=== PATIENT | male | born 1950 | race Caucasian/White ===

== ENCOUNTER 2021-11-03 19:03 | Inpatient (IN) ==
[2021-11-03] MEDS ORDERED: NS 1,000 ML IV 1,000 ML IV ONE ×2 (19:18→21:47)
[2021-11-03] MEDS ORDERED: NS 1,000 ML IV 1,000 ML ONE ×3 (19:19→22:55)
--- NOTE | 2021-11-03 19:28 | DR.GENAD ---
HPI Time Seen Time Seen by Provider: 11/03/21 19:28 PCP Primary Care Physician: logan HPI Comment HPI Comment: PATIENT IS 71YR OLD MALE IN ER WITH HIS , COMPLAINING OF DIARRHEA SINCE WEDNESDAY. HE IS WEAK, RUNNING FEVER AND IS ANOREXIC. Complaint/Symptoms Chief Complaint Doctors Comments: DIARRHEA SINCE WEDNESDAY. Chief Complaint:: PT STATES" I'VE HAD DIARRHEA SINCE WEDNESDAY AND I'VE ONLY ATE A HALF OF PIECE OF TOAST" COVID-19 Coronavirus risk:travel/contact w/high risk person: No Has patient experienced Coronavirus symptoms: No Nurses notes reviewed Nurses Notes Review: Yes Source History Provided: Patient Mode of Arrival Mode of Arrival: Wheelchair Timing Onset of Chief Complaint: 11/01/21 Duration Duration: Constant How lon Duration: Days Location Location: ABDOMEN. Severity Severity: Moderate Modifying Factors Worsens:: EXERTION. Improves:: REST. PMH PMH Past Medical History: Yes Past Medical History: Anemia, Arthritis, Coronary Artery Disease, CVA, Dyslipidemia, GERD, Hypertension, [place] and PUD Past Surgical History: Yes Surgical History: Angioplasty/Stents, Bowel Resection and Ortho Surgery Family History History of Family Medical Conditions: Yes Family Medical History: Cancer and Hypertension Social History Does patient currently use any type of tobacco product: No Have you used tobacco products in the last 12 months: No Type of Tobacco Use: None Does any household member use tobacco: No Alcohol Use: None Do you use any recreational Drugs:: No Lives With: Spouse Lives Where: Home Travel Risk Coronavirus risk:travel/contact w/high risk person: No Has patient experienced Coronavirus symptoms: No Infectious screening In the last 2 months have you had wt loss of >10#?: NO Have you had fever, night sweats or hemotysis?: No Have you traveled outside the country in the last 6 months?: No Isolation: Standard ROS Review of Systems Constitutional: See HPI, Fever, Weakness, Fatigue and Loss of Appetite Eyes: No Symptoms Reported ENTM: No Symptoms Reported and See HPI; negative Nose Discharge or Nose Congestion Respiratoy: No Symptoms Reported and See HPI; negative Moist Cough, Short of Breath or Wheezing Cardiovascular: No Symptoms Reported and See HPI; negative Chest Pain Gastrointestinal/Abdominal: See HPI, Abdominal Pain and Diarrhea; negative Nausea or Vomiting Genitourinary: No Symptoms Reported and See HPI; negative Dysuria, Frequency or Hematuria Neurological: See HPI and Weakness; negative Headache or Dizziness Musculoskeletal: No Symptoms Reported and See HPI; negative Muscle Pain Integumentary: See HPI and Dryness; negative Rash or Juandice Hematologic/Lymphatic: No Symptoms Reported and See HPI; negative Easy Bruising Endocrine: No Symptoms Reported and See HPI; negative Increased Thirst or Increased Urine Psychiatric: No Symptoms Reported and See HPI All Other Systems: Reviewed and Negative PE Vital Signs Vitals: Temperature 98.6 F Pulse Rate 88 Respiratory Rate 18 Blood Pressure 127/87 O2 Sat by Pulse Oximetry 97 Head Head Exam: Normal Inspection and Atraumatic Eyes Eye exam: Normal Appearance; negative Scleral Icterus or Conjunctival Injection ENT ENT Exam: Normal Exam, Normal Oropharynx, Normal External Ear Exam and TM's Normal Bilaterally External Ear Exam: Normal External Inspection; negative Mastoid Tenderness TM/Canal Exam: Bilateral: Normal Nose Exam: Normal Nose Exam Mouth Exam: Normal Inspection; negative Lip Swelling or Tongue Swelling Throat Exam: Normal Inspection; negative Tonsillar Erythema, Tonsillomegaly or Tonsillar Exudate Neck Neck Exam: Normal Inspection and Trachea Midline; negative Tenderness Chest Chest Inspection: Normal Inspection and Symmetric Chest Wall Rise; negative Tenderness Respiratory Respiratory Exam: Normal Lung Sounds Bilat; negative Accessory Muscle Use, Chest Wall Tenderness or Respiratory Distress Respiratory Exam: Bilateral: Rhonchi Cardiovascular Cardiovascular Exam: Regular Rate, Normal Rhythm and Normal Heart Sounds; negative Systolic Murmur or Diastolic Murmur Abdominal Exam Abdominal Exam: Normal Bowel Sounds, Soft and Tenderness Abdominal Tenderness: Diffuse and Moderate Extremities Extremities Exam: Normal Inspection and Normal Capillary Refill; negative Edema Back Back Exam: negative (R) CVA Tenderness, (L) CVA Tenderness or Paraspinal Tenderness Neurologic Neurological Exam: Alert and Oriented X3; negative Motor Sensory Deficit Psychiatric Psychiatric Exam: Normal Affect and Normal Mood Skin Skin Exam: Dry; negative Rash MDM Differential Diagnosis Differential Diagnosis: DIARRHEA, GASTROENTERITIS, ABDOMINAL PAIN, UTI, DEHYDRATION. COURSE Treatment Treatment: SEE ORDERS DONE WHILE PATIENT WAS IN ER. Consultation Consultation Comments: DISCUSSED PATIENT WITH DR. VAUGHAN. HE WILL ADMIT PATIENT. Education/Counseling Education/Counseling: Patient and Family Educated On: Diagnosis ROR Labs Reviewed Laboratory Results Reviewed?: Yes Result Diagrams: 11/06/21 05:25 11/06/21 05:25 Laboratory: 11/03/21 20:34 Stool Stool Culture - Final Salmonella Species 11/03/21 20:34 Stool - Final WBC 21.1 X10^3/uL (3.6-10.0) H 11/03/21 19: RBC 5.76 X10^6/uL (4.7-6.0) 11/03/21 19: Hgb 14.9 g/dL (13.5-18.0) 11/03/21 19: Hct 44.9 % (42.0-54.0) 11/03/21 19: MCV 78.0 fL (80.0-100.0) L 11/03/21 19: MCH 25.9 pg (27.0-34.0) L 11/03/21: MCHC 33.2 g/dL (33.0-35.0) 11/03/21: RDW 16.0 % (11.6-16.5) 11/03/21: Plt Count 205 X10^3/uL (150.0-450.0) 11/03/21: Plt Count Comment Adequate (ADEQUATE) 11/03/21: MPV 8.2 fL (7.4-11.0) 11/03/21 19: Neut % (Auto) 70.1 % (42.0-75.0) 11/03/21 19: Lymph % (Auto) 18.9 % (21.0-51.0) L 11/03/21 19: [place] % (Auto) 8.7 % (0.0-13.0) 11/03/21 19: Eos % (Auto) 1.7 % (0.9-2.9) 11/03/21: Baso % (Auto) 0.6 % (0.2-1.0) 11/03/21: Neut # (Auto) 14.8 x10^3/uL (2.2-4.8) H 11/03/21 19: Lymph # (Auto) 4.0 X10^3/uL (1.3-2.9) H 11/03/21 19:23 [place] # (Auto) 1.8 x10^3/uL (0.3-0.8) H 11/03/21 19: Eos # (Auto) 0.4 x10^3/uL (0.0-0.2) H 11/03/21 19:23 Baso # (Auto) 0.1 X10^3/uL (0.0-0.1) 11/03/21 19:23 Absolute Nucleated RBC 0.0 /100WBC 11/03/21 19:23 Total Counted 100 11/03/21 19:23 Neutrophils % (Manual) 81 % (39-76) H 11/03/21 19:23 Lymphocytes % (Manual) 13 % (13-43) 11/03/21 19:23 Monocytes % (Manual) 5 % (4-9) 11/03/21 19:23 Eosinophils % (Manual) 1 % (0-6) 11/03/21 19:23 Plt Morphology Comment Normal (NORMAL) 11/03/21 19: RBC Morphology Normal (NORMAL) 11/03/21 19:23 Sodium 137 mmol/L (136-145) 11/03/21 19:23 Corrected Sodium TNP 11/03/21 19: Potassium 3.4 mmol/L (3.5-5.1) L 11/03/21 19: Chloride 102 mmol/L (98-107) 11/03/21 19:23 Carbon Dioxide 25.4 mmol/L (21-32) 11/03/21 19:23 BUN 12 mg/dL (7-18) 11/03/21 19: Creatinine 1.24 mg/dL (0.70-1.30) 11/03/21 19:23 Est GFR (MDRD) Af Amer > 60 (>60) 11/03/21 19:23 Est GFR (MDRD) Non-Af > 60 (>60) 11/03/21 19:23 Glucose 109 mg/dL (65-99) H 11/03/21 19:23 Calcium 9.1 mg/dL (8.5-10.1) 11/03/21 19: Corrected Calcium TNP 11/03/21 19: Total Bilirubin 0.40 mg/dL (0.2-1.0) 11/03/21 19:23 AST 16 Units/L (15-37) 11/03/21 19:23 ALT 17 Units/L (12-78) 11/03/21 19:23 Alkaline Phosphatase 131 Units/L (46-116) H 11/03/21 19:23 Total Protein 7.7 g/dL (6.4-8.2) 11/03/21 19: Albumin 3.4 g/dL (3.4-5.0) 11/03/21 19: Globulin 4.3 g/dL (2.5-4.5) 11/03/21 19:23 Albumin/Globulin Ratio 0.8 Ratio (1.1-2.1) L 11/03/21 19:23 Specimen Type Clean catch urine 11/03/21 21:44 Urine Color Dark yellow (YELLOW) 11/03/21 21:44 Urine Appearance Clear (CLEAR) 11/03/21 21:44 Urine pH 5.0 (5.0 - 8.0) 11/03/21 21:44 Ur Specific [place] 1.025 (1.000-1.030) 11/03/21 21:44 Urine Protein 2+ (NEGATIVE) 11/03/21 21:44 Urine Glucose (UA) Negative (NEGATIVE) 11/03/21 21:44 Urine Ketones 1+ (NEGATIVE) 11/03/21 21:44 Urine Blood 2+ (NEGATIVE) 11/03/21 21:44 Urine Nitrite Negative (NEGATIVE) 11/03/21 21:44 Urine Bilirubin 1+ (NEGATIVE) 11/03/21 21:44 Urine Urobilinogen Normal (NORMAL) 11/03/21 21:44 Ur Leukocyte Esterase 1+ (NEGATIVE) 11/03/21 21:44 Urine RBC 5-10 /HPF (0-3) A 11/03/21 21:44 Urine WBC 3-5 /HPF (0-5) 11/03/21 21:44 Ur Squamous Epith Cells Rare /HPF (NEGATIVE) 11/03/21 21:44 Urine Bacteria Trace /HPF (NEGATIVE) 11/03/21 21:44 Urine Mucus Moderate /HPF (NEGATIVE) 11/03/21 21:44 Ur Culture Indicated? No/not indicated 11/03/21 21:44 Stool Description 50 g. dk.brwn/liquid 11/03/21 20:34 Stool Description 50 g.dk.brwn/liquid 11/03/21 20:34 Stl Occult Blood (IFOB) Positive (NEGATIVE) A 11/03/21 20:34 Stool for White Cells Positive (NEGATIVE) A 11/03/21 20:34 Stl C. diff Tox B Gene Negative (NEGATIVE) 11/03/21 20:34 Stl C. diff [id number] Presumptive negative (NEGATIVE) 11/03/21 20:34 Stool H. pylori Ag Positive (NEGATIVE) A 11/03/21 20:34 SARS-CoV-2 (PCR) Negative (NEGATIVE) 11/03/21 19:44 Cryptosporid parvum Ag Positive (NEGATIVE) A 11/03/21 20:34 Giardia lamblia Ag Negative (NEGATIVE) 11/03/21 20:34 Influenza Type A (PCR) Negative (NEGATIVE) 11/03/21 19:44 Influenza Type B (PCR) Negative (NEGATIVE) 11/03/21 19:44 RSV (PCR) Negative (NEGATIVE) 11/03/21 19:44 XRAY XRAY Interpreted by: Radiologist (REPORTS NOTED.) and Self Opioid Opioid Risk Tool Age (Ron box if 16-45): No History of Preadolescent Sexual Abuse: No Total: 0 Total Score Risk Category: Low Risk Copyright: Richard RICCI predicting aberrant behaviors Discharge Plan Diagnosis Discharge Problem: Infectious diarrhea in adult patient, Acute colitis, Acute dehydration, Abdominal pain Discharge Plan Patient Disposition: 01 HOME, SELF-CARE Condition: Stable
[2021-11-03 19:33] LABS: BASOPHILS # (AUTO) 0.1 X10^3/uL (0.0-0.1); BASOPHILS % (AUTO) 0.6 % (0.2-1.0); EOSINOPHILS # (AUTO) 0.4 x10^3/uL (0.0-0.2); EOSINOPHILS % (AUTO) 1.7 % (0.9-2.9); HEMATOCRIT 44.9 % (42.0-54.0); HEMOGLOBIN 14.9 g/dL (13.5-18.0); LYMPHOCYTES % (AUTO) 18.9 % (21.0-51.0); MEAN CORPUSCULAR HEMOGLOBIN 25.9 pg (27.0-34.0); MEAN CORPUSCULAR HGB CONC 33.2 g/dL (33.0-35.0); MEAN PLATELET VOLUME 8.2 fL (7.4-11.0); MONOCYTES # (AUTO) 1.8 x10^3/uL (0.3-0.8); MONOCYTES % (AUTO) 8.7 % (0.0-13.0); NEUTROPHILS # (AUTO) 14.8 x10^3/uL (2.2-4.8); NEUTROPHILS % (AUTO) 70.1 % (42.0-75.0); RED BLOOD COUNT 5.76 X10^6/uL (4.7-6.0); WHITE BLOOD COUNT 21.1 X10^3/uL (3.6-10.0)
[2021-11-03 19:44] LABS: ALANINE AMINOTRANSFERASE 17 Units/L (12-78); ALBUMIN 3.4 g/dL (3.4-5.0); ALKALINE PHOSPHATASE 131 Units/L (46-116); ASPARTATE AMINO TRANSFERASE 16 Units/L (15-37); BLOOD UREA NITROGEN 12 mg/dL (7-18); CALCIUM 9.1 mg/dL (8.5-10.1); CARBON DIOXIDE 25.4 mmol/L (21-32); CHLORIDE 102 mmol/L (98-107); CREATININE 1.24 mg/dL (0.70-1.30); SODIUM 137 mmol/L (136-145); TOTAL PROTEIN 7.7 g/dL (6.4-8.2); eGFR NON BLACK RACES > 60 (>60)
[2021-11-03 19:46] LABS: PLATELET MORPHOLOGY COMMENT NORMAL (NORMAL)
--- NOTE | 2021-11-03 21:27 | RAD ---
HISTORYPT STATES" I'VE HAD DIARRHEA SINCE WEDNESDAY AND I'VE ONLY ATE A HALF OF PIECE OF TOAST" Relevant Clinical InformationSTUDYCHEST, 1 VIEWCOMPARISONFINDINGSThe trachea is midline. The aorta is tortuous with atherosclerosis. The cardiac silhouette is unremarkable. The lungs are clear without focal infiltrate or effusion. The bony thorax is unremarkable.IMPRESSIONNo acute cardiopulmonary findings .Electronically signed by: Taurus Watts (Nov 03, 2021 21:25:39)
--- NOTE | 2021-11-03 21:38 | CT ---
HISTORYPT STATES" I'VE HAD DIARRHEA SINCE WEDNESDAY AND I'VE ONLY ATE A HALF OF PIECE OF TOAST"STUDYABDOMEN/PELVIS W/O CONCOMPARISONTECHNIQUEMultiple axial images of the abdomen and pelvis were obtained from the lung bases to the pubic symphysis without the administration of IV contrast. Dose reduction techniques including Automated Exposure Control (AEC) and adjustment of mA and kV were utilized.FINDINGSThere is bronchial wall thickening. The lung bases are clear without effusion. There is a trace pericardial effusion. Heart size is normal with multi-vessel coronary atherosclerosis. The liver is normal. The gallbladder has been removed. Pancreas is mildly atrophic. The spleen, adrenal glands, and kidneys are normal. There is fairly severe systemic atherosclerosis. 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 The stomach is grossly unremarkable. Is in the small bowel but there is no abnormal dilation of the small bowel loops. There is no evidence for appendicitis. There is nonspecific wall thickening in the cecum and right colon and in the area of the distal transverse colon and in the sigmoid colon. There is some nonspecific induration in the mesenteric fat of the sigmoid. No mass is identified. The bladder is normal. Prostate measures 4.3 centimeter in diameter. There is degeneration in the spine pelvis. There is no worrisome bone marrow lesion.IMPRESSION1. There is nonspecific multifocal wall thickening in the colon including in the cecum and right colon and in the distal transverse colon and in the descending and sigmoid colon. The appearance is suggestive of some form of colitis area 2. Severe systemic atherosclerosis. Ischemic bowel might be a consideration.Electronically signed by: Taurus Watts (Nov 03, 2021 21:36:12)
[2021-11-03 21:59] LABS: BILIRUBIN,URINE 1+ (NEGATIVE); BLOOD/HEMOGLOBIN,URINE 2+ (NEGATIVE); GLUCOSE, URINE NEGATIVE (NEGATIVE); KETONES,URINE 1+ (NEGATIVE); LEUKOCYTE ESTERASE ,URINE 1+ (NEGATIVE); NITRITES,URINE NEGATIVE (NEGATIVE); PROTEIN,URINE 2+ (NEGATIVE); UROBILINOGEN,URINE NORMAL (NORMAL)
[2021-11-03] MEDS ORDERED: NS 1,000 ML IV 1,000 ML IV SCH (22:00)
[2021-11-03 22:08] LABS: APPEARANCE,URINE CLEAR (CLEAR); BACTERIA,URINE TRACE /HPF (NEGATIVE); COLOR,URINE DARK YELLOW (YELLOW); SQUAMOUS EPITHELIAL CELL,UR RARE /HPF (NEGATIVE)
[2021-11-03 22:29] LABS: CRYPTOSPORIDIUM PARVUM ANTIGEN POSITIVE (NEGATIVE); GIARDIA LAMBLIA ANTIGEN NEGATIVE (NEGATIVE)
[2021-11-03] MEDS: NS 1,000 ML IV 1,000 ML IV SCH (23:01)
[2021-11-03] MEDS ORDERED: K-DUR TAB 20 MEQ PO ONE ×2 (23:17→23:19)
[2021-11-03] MEDS ORDERED: LOMOTIL ONE (23:19)
[2021-11-03] MEDS: LOMOTIL PO ONE ×2 (23:23→23:24)
[2021-11-03] MEDS ORDERED: FLAGYL IV PREMIX 500 MG BAG 500 MG/100 ML BAG IV ONE ×2 (23:29→23:37)
[2021-11-04] MEDS ORDERED: MORPHINE SULFATE INJ 2 MG INJ IVP PRN (00:52)
[2021-11-04] MEDS ORDERED: ZOFRAN INJ 4 MG VIAL IVP PRN (00:52)
[2021-11-04] MEDS: PEPCID 20 MG VIAL 20 MG in NS 50 ML IV 50 ML IV SCH ×2 (02:23→20:41)
[2021-11-04] MEDS: CIPRO IV 400 MG PREMIX* 400 MG/200 ML IV.SOLN. IV SCH ×3 (02:23→21:34)
[2021-11-04 05:37] LABS: BASOPHILS % (AUTO) 0.1 % (0.2-1.0); EOSINOPHILS # (AUTO) 0.1 x10^3/uL (0.0-0.2); EOSINOPHILS % (AUTO) 0.8 % (0.9-2.9); HEMATOCRIT 37.9 % (42.0-54.0); LYMPHOCYTES # (AUTO) 3.1 X10^3/uL (1.3-2.9); LYMPHOCYTES % (AUTO) 21.4 % (21.0-51.0); MEAN CORPUSCULAR HGB CONC 33.6 g/dL (33.0-35.0); MEAN CORPUSCULAR VOLUME 77.5 fL (80.0-100.0); MEAN PLATELET VOLUME 8.2 fL (7.4-11.0); MONOCYTES # (AUTO) 1.4 x10^3/uL (0.3-0.8); NEUTROPHILS # (AUTO) 9.7 x10^3/uL (2.2-4.8); NEUTROPHILS % (AUTO) 67.7 % (42.0-75.0); RED BLOOD COUNT 4.89 X10^6/uL (4.7-6.0); RED CELL DISTRIBUTION WIDTH 15.9 % (11.6-16.5); WHITE BLOOD COUNT 14.3 X10^3/uL (3.6-10.0)
[2021-11-04 05:43] LABS: HEMOGLOBIN 12.7 g/dL (13.5-18.0)
[2021-11-04 05:47] LABS: ALANINE AMINOTRANSFERASE 14 Units/L (12-78); ALBUMIN 2.7 g/dL (3.4-5.0); ALKALINE PHOSPHATASE 106 Units/L (46-116); AMYLASE 17 Units/L (25-115); ASPARTATE AMINO TRANSFERASE 13 Units/L (15-37); BLOOD UREA NITROGEN 10 mg/dL (7-18); CALCIUM 8.1 mg/dL (8.5-10.1); CARBON DIOXIDE 23.2 mmol/L (21-32); CHLORIDE 106 mmol/L (98-107); COR CA(FOR HYPOALB) 9.1 mg/dL (8.5-10.1); CREATININE 0.88 mg/dL (0.70-1.30); LIPASE 46 Units/L (73-393); SODIUM 138 mmol/L (136-145); TOTAL PROTEIN 6.2 g/dL (6.4-8.2); eGFR NON BLACK RACES > 60 (>60)
[2021-11-04] MEDS ORDERED: POTASSIUM CHL 40 MEQ/NS 0.45% 500 ML IV PRN (06:02)
[2021-11-04] MEDS ORDERED: POTASSIUM CHL 60 MEQ/NS 0.45% 500 ML IV PRN ×2 (06:02→06:19)
[2021-11-04] MEDS ORDERED: KLOR-CON PO PRN (06:02)
[2021-11-04] MEDS ORDERED: MICRO K EXTEN CAP 10 MEQ PO PRN (06:02)
[2021-11-04] MEDS ORDERED: K-RIDER 10 MEQ/NS 100 ML 10 MEQ/100 ML BAG IV PRN (06:02)
[2021-11-04] MEDS ORDERED: POTASSIUM CHLORIDE LIQ 20 MEQ UDC PO PRN (06:02)
[2021-11-04] MEDS ORDERED: K-DUR TAB 20 MEQ PO ONE (06:10)
[2021-11-04] MEDS: NS 1,000 ML IV 1,000 ML IV SCH ×4 (07:37→21:00)
--- NOTE | 2021-11-04 08:12 | DR.H&P ---
H&P History & Physical for Day of: H&P Date: 11/04/21 Chief Complaint Chief Complaint: Fever, chills, Diarrhea, Decreased appetite Generalized weakness Allergies Allergies Allergy/AdvReac Type Severity Reaction Status Date / Time No Known Drug Allergies Allergy Verified 10/04/20 13:24 History of Present Illness History of Present Illness: Pt is a 71 year old male past medical history of Hypertension, CAD, Hyperlipidemia, presenting with fever, chills, weakness, diarrhea, lower abdominal pain, and decreased appetite since Wednesday. He does not recall any foods that he ate that day or prior to symptoms. No one else that he knows is sick as well. Labs/imaging: Wbc 21>14.3, Hgb 12.7, Plt 163, Na 138, K 3.1, Creatinine 0.88, Glucose 97, LA 1.7, UA negative, H. pylori positive, C. Diff negative, Cryptosporidium positive, Campylobacter positive, Stool culture final pending. Blood cultures pending, RSV/ Influenza/ COVID-19 negative, CTAP was obtained that revealed: 1.There is nonspecific multifocal wall thickening in the colon including in the cecum and right colon and in the distal transverse colon and in the descending and sigmoid colon. The appearance is suggestive of some form of colitis area 2. Severe systemic atherosclerosis. Ischemic bowel might be a consideration. CXR: No acute cardiopulmonary findings. Pt was admitted for colitis. He was started on IVF NS and IV antibiotics: Ciprofloxacin and Flagyl. Will restart home medications. Consult general surgery-Dr Palacios for further evaluation and recommendations. Continue to closely monitor and follow up labs/imaging. Past Medical History Past Medical History: Anemia, Arthritis, Coronary Artery Disease, CVA, Dyslipidemia, GERD, Hypertension, [place] and PUD Past Surgical History Surgical History: Angioplasty/Stents, Bowel Resection and Ortho Surgery Family History Family Medical History: Cancer and Hypertension Social History Does patient currently use any type of tobacco product: No Have you used tobacco products in the last 12 months: No Type of Tobacco Use: None Does any household member use tobacco: No Alcohol Use: None Medications Home Medications: No Known Drug Allergies Allergy (Verified 10/04/20 13:24) Labs Result Diagrams: 11/05/21 05:24 11/05/21 05:24 Labs: 11/03/21 20:34 Stool - Final Laboratory WBC 14.3 X10^3/uL (3.6-10.0) H 11/04/21 05:16 RBC 4.89 X10^6/uL (4.7-6.0) 11/04/21 05:16 Hgb 12.7 g/dL (13.5-18.0) L D 11/04/21 05:16 Hct 37.9 % (42.0-54.0) L 11/04/21 05:16 MCV 77.5 fL (80.0-100.0) L 11/04/21 05:16 MCH 26.0 pg (27.0-34.0) L 11/04/21 05:16 MCHC 33.6 g/dL (33.0-35.0) 11/04/21 05:16 RDW 15.9 % (11.6-16.5) 11/04/21 05:16 Plt Count 163 X10^3/uL (150.0-450.0) 11/04/21 05:16 Plt Count Comment Adequate (ADEQUATE) 11/03/21 19:23 MPV 8.2 fL (7.4-11.0) 11/04/21 05:16 Neut % (Auto) 67.7 % (42.0-75.0) 11/04/21 05:16 Lymph % (Auto) 21.4 % (21.0-51.0) 11/04/21 05:16 Div[place] % (Auto) 10.0 % (0.0-13.0) 11/04/21 05:16 Eos % (Auto) 0.8 % (0.9-2.9) L 11/04/21 05:16 Baso % (Auto) 0.1 % (0.2-1.0) L 11/04/21 05:16 Neut # (Auto) 9.7 x10^3/uL (2.2-4.8) H 11/04/21 05:16 Lymph # (Auto) 3.1 X10^3/uL (1.3-2.9) H 11/04/21 05:16 [place] # (Auto) 1.4 x10^3/uL (0.3-0.8) H 11/04/21 05:16 Eos # (Auto) 0.1 x10^3/uL (0.0-0.2) 11/04/21 05:16 Baso # (Auto) 0.0 X10^3/uL (0.0-0.1) 11/04/21 05:16 Absolute Nucleated RBC 0.1 /100WBC 11/04/21 05:16 Total Counted 100 11/03/21 19:23 Neutrophils % (Manual) 81 % (39-76) H 11/03/21 19:23 Lymphocytes % (Manual) 13 % (13-43) 11/03/21 19:23 Monocytes % (Manual) 5 % (4-9) 11/03/21 19:23 Eosinophils % (Manual) 1 % (0-6) 11/03/21 19:23 Plt Morphology Comment Normal (NORMAL) 11/03/21 19:23 RBC Morphology Normal (NORMAL) 11/03/21 19:23 Sodium 138 mmol/L (136-145) 11/04/21 05:16 Corrected Sodium TNP 11/04/21 05:16 Potassium 3.1 mmol/L (3.5-5.1) L 11/04/21 05:16 Chloride 106 mmol/L (98-107) 11/04/21 05:16 Carbon Dioxide 23.2 mmol/L (21-32) 11/04/21 05:16 BUN 10 mg/dL (7-18) 11/04/21 05:16 Creatinine 0.88 mg/dL (0.70-1.30) 11/04/21 05:16 Est GFR (MDRD) Af Amer > 60 (>60) 11/04/21 05:16 Est GFR (MDRD) Non-Af > 60 (>60) 11/04/21 05:16 Glucose 97 mg/dL (65-99) 11/04/21 05:16 Calcium 8.1 mg/dL (8.5-10.1) L 11/04/21 05:16 Corrected Calcium 9.1 mg/dL (8.5-10.1) 11/04/21 05:16 Magnesium 1.6 mg/dL (1.7-2.9) L 11/04/21 05:16 Magnesium Cancelled 11/04/21 05:16 Total Bilirubin 0.30 mg/dL (0.2-1.0) 11/04/21 05:16 AST 13 Units/L (15-37) L 11/04/21 05:16 ALT 14 Units/L (12-78) 11/04/21 05:16 Alkaline Phosphatase 106 Units/L (46-116) 11/04/21 05:16 Total Protein 6.2 g/dL (6.4-8.2) L 11/04/21 05:16 Albumin 2.7 g/dL (3.4-5.0) L 11/04/21 05:16 Globulin 3.5 g/dL (2.5-4.5) 11/04/21 05:16 Albumin/Globulin Ratio 0.8 Ratio (1.1-2.1) L 11/04/21 05:16 Amylase 17 Units/L (25-115) L 11/04/21 05:16 Lipase 46 Units/L (73-393) L 11/04/21 05:16 Specimen Type Clean catch urine 11/03/21 21:44 Urine Color Dark yellow (YELLOW) 11/03/21 21:44 Urine Appearance Clear (CLEAR) 11/03/21 21:44 Urine pH 5.0 (5.0 - 8.0) 11/03/21 21:44 Ur Specific [place] 1.025 (1.000-1.030) 11/03/21 21:44 Urine Protein 2+ (NEGATIVE) 11/03/21 21:44 Urine Glucose (UA) Negative (NEGATIVE) 11/03/21 21:44 Urine Ketones 1+ (NEGATIVE) 11/03/21 21:44 Urine Blood 2+ (NEGATIVE) 11/03/21 21:44 Urine Nitrite Negative (NEGATIVE) 11/03/21 21:44 Urine Bilirubin 1+ (NEGATIVE) 11/03/21 21:44 Urine Urobilinogen Normal (NORMAL) 11/03/21 21:44 Ur Leukocyte Esterase 1+ (NEGATIVE) 11/03/21 21:44 Urine RBC 5-10 /HPF (0-3) A 11/03/21 21:44 Urine WBC 3-5 /HPF (0-5) 11/03/21 21:44 Ur Squamous Epith Cells Rare /HPF (NEGATIVE) 11/03/21 21:44 Urine Bacteria Trace /HPF (NEGATIVE) 11/03/21 21:44 Urine Mucus Moderate /HPF (NEGATIVE) 11/03/21 21:44 Ur Culture Indicated? No/not indicated 11/03/21 21:44 Stool Description 50 g. dk.brwn/liquid 11/03/21 20:34 Stool Description 50 g.dk.brwn/liquid 11/03/21 20:34 Stl Occult Blood (IFOB) Positive (NEGATIVE) A 11/03/21 20:34 Stool for White Cells Positive (NEGATIVE) A 11/03/21 20:34 Stl C. diff Tox B Gene Negative (NEGATIVE) 11/03/21 20:34 Stl C. diff [id number] Presumptive negative (NEGATIVE) 11/03/21 20:34 Stool H. pylori Ag Positive (NEGATIVE) A 11/03/21 20:34 SARS-CoV-2 (PCR) Negative (NEGATIVE) 11/03/21 19:44 Cryptosporid parvum Ag Positive (NEGATIVE) A 11/03/21 20:34 Giardia lamblia Ag Negative (NEGATIVE) 11/03/21 20:34 Influenza Type A (PCR) Negative (NEGATIVE) 11/03/21 19:44 Influenza Type B (PCR) Negative (NEGATIVE) 11/03/21 19:44 RSV (PCR) Negative (NEGATIVE) 11/03/21 19:44 Review of Systems Constitutional: Fever, Chills and Weakness Eyes: No Symptoms Reported ENT: No Symptoms Reported Respiratory: No Symptoms Reported Cardiovascular: No Symptoms Reported Gastrointestinal: Abdominal Pain and Diarrhea Genitourinary: No Symptoms Reported Musculoskeletal: No Symptoms Reported Skin: No Symptoms Reported Neurological: No Symptoms Reported Physical Exam Vital Signs: Temperature 98.6 F Pulse Rate [Left Radial] 80 Pulse Rate 88 Respiratory Rate 18 Blood Pressure [Left Arm] 123/77 Blood Pressure 127/87 O2 Sat by Pulse Oximetry 97 Oriented: Normal Eyes: Normal Ear: Normal Nose: Normal Throat: Normal Respiratory: Clear Throughout Cardiovascular: Normal : Normal Auscultation: Bowel Sounds: Normal Palpation: Normal Tenderness: RLQ, LLQ, Mild and Moderate Skin: Normal Musculoskeletal: Normal Psychiatric: Normal Mood Description: Calm and Appropriate Affect: Normal Speech Pattern: Clear and Appropriate Assessment/Plan (1) Acute colitis: Status: Acute Plan: IV antibiotics (2) Infectious diarrhea in adult patient: Status: Acute (3) Acute dehydration: Status: Acute (4) Campylobacter diarrhea: Status: Acute (5) Helicobacter pylori ab+: Status: Acute Review H&P Reviewed: Yes Patient was examined?: Yes
[2021-11-04] MEDS: FLAGYL IV PREMIX 500 MG BAG 500 MG/100 ML BAG IV SCH ×3 (08:28→21:34)
[2021-11-04] MEDS: MAGNESIUM SULFATE 1 GRAM/100 mL PREMIX 1 G/100 ML BAG IV PRN ×2 (09:29→10:29)
[2021-11-04 10:13] VITALS: BMI 25.4
[2021-11-04] MEDS: K-DUR TAB 20 MEQ PO PRN (10:29)
[2021-11-05] MEDS: NS 1,000 ML IV 1,000 ML IV SCH ×4 (01:48→22:30)
[2021-11-05] MEDS: FLAGYL IV PREMIX 500 MG BAG 500 MG/100 ML BAG IV SCH ×4 (03:16→21:54)
[2021-11-05 06:02] LABS: BASOPHILS % (AUTO) 0.3 % (0.2-1.0); EOSINOPHILS # (AUTO) 0.3 x10^3/uL (0.0-0.2); HEMATOCRIT 37.6 % (42.0-54.0); HEMOGLOBIN 12.3 g/dL (13.5-18.0); LYMPHOCYTES # (AUTO) 3.1 X10^3/uL (1.3-2.9); LYMPHOCYTES % (AUTO) 36.5 % (21.0-51.0); MEAN CORPUSCULAR HEMOGLOBIN 25.6 pg (27.0-34.0); MEAN CORPUSCULAR HGB CONC 32.7 g/dL (33.0-35.0); MEAN CORPUSCULAR VOLUME 78.2 fL (80.0-100.0); MEAN PLATELET VOLUME 8.3 fL (7.4-11.0); MONOCYTES % (AUTO) 11.8 % (0.0-13.0); NEUTROPHILS # (AUTO) 4.1 x10^3/uL (2.2-4.8); NEUTROPHILS % (AUTO) 48.4 % (42.0-75.0); RED CELL DISTRIBUTION WIDTH 16.1 % (11.6-16.5); WHITE BLOOD COUNT 8.6 X10^3/uL (3.6-10.0)
[2021-11-05 06:17] LABS: ALANINE AMINOTRANSFERASE 13 Units/L (12-78); ALBUMIN 2.8 g/dL (3.4-5.0); ALKALINE PHOSPHATASE 101 Units/L (46-116); ASPARTATE AMINO TRANSFERASE 22 Units/L (15-37); BLOOD UREA NITROGEN 6 mg/dL (7-18); CALCIUM 8.6 mg/dL (8.5-10.1); CARBON DIOXIDE 22.9 mmol/L (21-32); CHLORIDE 109 mmol/L (98-107); COR CA(FOR HYPOALB) 9.6 mg/dL (8.5-10.1); MAGNESIUM 2.2 mg/dL (1.7-2.9); SODIUM 143 mmol/L (136-145); TOTAL PROTEIN 6.4 g/dL (6.4-8.2); eGFR NON BLACK RACES > 60 (>60)
[2021-11-05] MEDS ORDERED: CATAPRES TAB 0.1 MG PO ONE (08:09)
[2021-11-05] MEDS: CIPRO IV 400 MG PREMIX* 400 MG/200 ML IV.SOLN. IV SCH ×2 (08:13→21:54)
[2021-11-05] MEDS: VSL#3 PO SCH (08:21)
[2021-11-05] MEDS: CRESTOR TAB 10 MG PO SCH (08:21)
[2021-11-05] MEDS: ISOSORBIDE MONONITRATE ER 24-HR PO SCH (08:22)
[2021-11-05] MEDS: COREG TAB 6.25 MG PO SCH ×2 (08:22→21:07)
[2021-11-05] MEDS: PLAVIX PO SCH (08:23)
[2021-11-05] MEDS: PROTONIX TAB 40 MG PO SCH ×2 (08:24→21:07)
--- NOTE | 2021-11-05 16:25 | DR.PROGNOT ---
Hospital Progress Notes - Progress Note for Day of: Progress Note Date: 11/05/21 - Chief Complaint Chief Complaint: feeling better today with less diarrhea and minimal abdominal pain . WBC is normal today . lactic acid N . LFT normal . afebrile and tolerating diet . - Past Medical Family Social History Past Med/Fam/Surg Hx: No changes since H&P Allergies: Allergies No Known Drug Allergies Allergy (Verified 10/04/20 13:24) - Review Of Systems ROS: No change since H&P - Vital Signs Vital Signs: Temperature 98.0 F Pulse Rate [Left Radial] 59 Pulse Rate 88 Respiratory Rate 18 Blood Pressure [Left Arm] 112/60 Blood Pressure 127/87 O2 Sat by Pulse Oximetry 96 - Physical Exam Oriented: Normal Eyes: Normal Ear: Normal Nose: Normal Throat: Normal Cardiovascular: Normal : Normal GI:Auscultation: Normal GI:Palpation: Normal GI: Tenderness: RLQ, LLQ, Mild, Other (soft, flat abdomen with mild diffuse tenderness lower and LLQ . ) Skin: Normal Musculoskeletal: Normal Psychiatric: Normal Mood Description: Calm, Appropriate Affect: Normal Speech Pattern: Clear, Appropriate - Laboratory and Diagnostics Result Diagrams: 11/05/21 05:24 11/05/21 05:24 Labs: 11/03/21 20:34 Stool Stool Culture - Preliminary 11/03/21 20:34 Stool - Final Laboratory WBC 8.6 X10^3/uL (3.6-10.0) 11/05/21 05:24 RBC 4.80 X10^6/uL (4.7-6.0) 11/05/21 05:24 Hgb 12.3 g/dL (13.5-18.0) L 11/05/21 05:24 Hct 37.6 % (42.0-54.0) L 11/05/21 05:24 MCV 78.2 fL (80.0-100.0) L 11/05/21 05:24 MCH 25.6 pg (27.0-34.0) L 11/05/21 05:24 MCHC 32.7 g/dL (33.0-35.0) L 11/05/21 05:24 RDW 16.1 % (11.6-16.5) 11/05/21 05:24 Plt Count 159 X10^3/uL (150.0-450.0) 11/05/21 05:24 Plt Count Comment Adequate (ADEQUATE) 11/03/21 19:23 MPV 8.3 fL (7.4-11.0) 11/05/21 05:24 Neut % (Auto) 48.4 % (42.0-75.0) 11/05/21 05:24 Lymph % (Auto) 36.5 % (21.0-51.0) 11/05/21 05:24 [place] % (Auto) 11.8 % (0.0-13.0) 11/05/21 05:24 Eos % (Auto) 3.0 % (0.9-2.9) H 11/05/21 05:24 Baso % (Auto) 0.3 % (0.2-1.0) 11/05/21 05:24 Neut # (Auto) 4.1 x10^3/uL (2.2-4.8) 11/05/21 05:24 Lymph # (Auto) 3.1 X10^3/uL (1.3-2.9) H 11/05/21 05:24 [place] # (Auto) 1.0 x10^3/uL (0.3-0.8) H 11/05/21 05:24 Eos # (Auto) 0.3 x10^3/uL (0.0-0.2) H 11/05/21 05:24 Baso # (Auto) 0.0 X10^3/uL (0.0-0.1) 11/05/21 05:24 Absolute Nucleated RBC 0.1 /100WBC 11/05/21 05:24 Total Counted 100 11/03/21 19:23 Neutrophils % (Manual) 81 % (39-76) H 11/03/21 19:23 Lymphocytes % (Manual) 13 % (13-43) 11/03/21 19:23 Monocytes % (Manual) 5 % (4-9) 11/03/21 19:23 Eosinophils % (Manual) 1 % (0-6) 11/03/21 19:23 Plt Morphology Comment Normal (NORMAL) 11/03/21 19:23 RBC Morphology Normal (NORMAL) 11/03/21 19:23 Sodium 143 mmol/L (136-145) 11/05/21 05:24 Corrected Sodium TNP 11/05/21 05:24 Potassium 3.9 mmol/L (3.5-5.1) 11/05/21 05:24 Chloride 109 mmol/L (98-107) H 11/05/21 05:24 Carbon Dioxide 22.9 mmol/L (21-32) 11/05/21 05:24 BUN 6 mg/dL (7-18) L 11/05/21 05:24 Creatinine 0.80 mg/dL (0.70-1.30) 11/05/21 05:24 Est GFR (MDRD) Af Amer > 60 (>60) 11/05/21 05:24 Est GFR (MDRD) Non-Af > 60 (>60) 11/05/21 05:24 Glucose 103 mg/dL (65-99) H 11/05/21 05:24 Lactic Acid 1.7 mmol/L (0.4-2.0) 11/04/21 08:15 Calcium 8.6 mg/dL (8.5-10.1) 11/05/21 05:24 Corrected Calcium 9.6 mg/dL (8.5-10.1) 11/05/21 05:24 Magnesium 2.2 mg/dL (1.7-2.9) 11/05/21 05:24 Total Bilirubin 0.30 mg/dL (0.2-1.0) 11/05/21 05:24 AST 22 Units/L (15-37) 11/05/21 05:24 ALT 13 Units/L (12-78) 11/05/21 05:24 Alkaline Phosphatase 101 Units/L (46-116) 11/05/21 05:24 Total Protein 6.4 g/dL (6.4-8.2) 11/05/21 05:24 Albumin 2.8 g/dL (3.4-5.0) L 11/05/21 05:24 Globulin 3.6 g/dL (2.5-4.5) 11/05/21 05:24 Albumin/Globulin Ratio 0.8 Ratio (1.1-2.1) L 11/05/21 05:24 Amylase 17 Units/L (25-115) L 11/04/21 05:16 Lipase 46 Units/L (73-393) L 11/04/21 05:16 Specimen Type Clean catch urine 11/03/21 21:44 Urine Color Dark yellow (YELLOW) 11/03/21 21:44 Urine Appearance Clear (CLEAR) 11/03/21 21:44 Urine pH 5.0 (5.0 - 8.0) 11/03/21 21:44 Ur Specific [place] 1.025 (1.000-1.030) 11/03/21 21:44 Urine Protein 2+ (NEGATIVE) 11/03/21 21:44 Urine Glucose (UA) Negative (NEGATIVE) 11/03/21 21:44 Urine Ketones 1+ (NEGATIVE) 11/03/21 21:44 Urine Blood 2+ (NEGATIVE) 11/03/21 21:44 Urine Nitrite Negative (NEGATIVE) 11/03/21 21:44 Urine Bilirubin 1+ (NEGATIVE) 11/03/21 21:44 Urine Urobilinogen Normal (NORMAL) 11/03/21 21:44 Ur Leukocyte Esterase 1+ (NEGATIVE) 11/03/21 21:44 Urine RBC 5-10 /HPF (0-3) A 11/03/21 21:44 Urine WBC 3-5 /HPF (0-5) 11/03/21 21:44 Ur Squamous Epith Cells Rare /HPF (NEGATIVE) 11/03/21 21:44 Urine Bacteria Trace /HPF (NEGATIVE) 11/03/21 21:44 Urine Mucus Moderate /HPF (NEGATIVE) 11/03/21 21:44 Ur Culture Indicated? No/not indicated 11/03/21 21:44 Stool Description 50 g. dk.brwn/liquid 11/03/21 20:34 Stool Description 50 g.dk.brwn/liquid 11/03/21 20:34 Stl Occult Blood (IFOB) Positive (NEGATIVE) A 11/03/21 20:34 Stool for White Cells Positive (NEGATIVE) A 11/03/21 20:34 Stl C. diff Tox B Gene Negative (NEGATIVE) 11/03/21 20:34 Stl C. diff [id number] Presumptive negative (NEGATIVE) 11/03/21 20:34 Stool H. pylori Ag Positive (NEGATIVE) A 11/03/21 20:34 SARS-CoV-2 (PCR) Negative (NEGATIVE) 11/03/21 19:44 Cryptosporid parvum Ag Positive (NEGATIVE) A 11/03/21 20:34 Giardia lamblia Ag Negative (NEGATIVE) 11/03/21 20:34 Influenza Type A (PCR) Negative (NEGATIVE) 11/03/21 19:44 Influenza Type B (PCR) Negative (NEGATIVE) 11/03/21 19:44 RSV (PCR) Negative (NEGATIVE) 11/03/21 19:44 - Assessment and Plan 1: subsiding infectious colitis . positive HP and [place] . chronic intestinal ischemia . can discharge on Prev jessica .. f/u in one week . future colonoscopy .. - Problem Patient Problems: Patient Problems Infectious diarrhea in adult patient (Acute) A09 Acute colitis (Acute) K52.9 Acute dehydration (Acute) E86.0 Abdominal pain (Acute) R10.9
[2021-11-05] MEDS ORDERED: FLOMAX PO SCH (21:00)
[2021-11-05] MEDS: PEPCID 20 MG VIAL 20 MG in NS 50 ML IV 50 ML IV SCH (21:10)
[2021-11-06] MEDS: FLAGYL IV PREMIX 500 MG BAG 500 MG/100 ML BAG IV SCH ×2 (02:48→10:49)
[2021-11-06 04:20] VITALS: BP 123/76
[2021-11-06] MEDS: NS 1,000 ML IV 1,000 ML IV SCH ×2 (05:32→08:24)
[2021-11-06 05:45] LABS: BASOPHILS % (AUTO) 0.4 % (0.2-1.0); EOSINOPHILS # (AUTO) 0.2 x10^3/uL (0.0-0.2); EOSINOPHILS % (AUTO) 2.7 % (0.9-2.9); HEMATOCRIT 34.1 % (42.0-54.0); HEMOGLOBIN 11.3 g/dL (13.5-18.0); LYMPHOCYTES # (AUTO) 3.2 X10^3/uL (1.3-2.9); LYMPHOCYTES % (AUTO) 36.3 % (21.0-51.0); MEAN CORPUSCULAR HEMOGLOBIN 25.4 pg (27.0-34.0); MEAN CORPUSCULAR VOLUME 76.9 fL (80.0-100.0); MEAN PLATELET VOLUME 7.9 fL (7.4-11.0); MONOCYTES # (AUTO) 0.9 x10^3/uL (0.3-0.8); MONOCYTES % (AUTO) 10.2 % (0.0-13.0); NEUTROPHILS # (AUTO) 4.4 x10^3/uL (2.2-4.8); NEUTROPHILS % (AUTO) 50.4 % (42.0-75.0); RED BLOOD COUNT 4.44 X10^6/uL (4.7-6.0); RED CELL DISTRIBUTION WIDTH 15.7 % (11.6-16.5); WHITE BLOOD COUNT 8.8 X10^3/uL (3.6-10.0)
[2021-11-06 05:59] LABS: ALANINE AMINOTRANSFERASE 16 Units/L (12-78); ALBUMIN 2.7 g/dL (3.4-5.0); ALKALINE PHOSPHATASE 92 Units/L (46-116); ASPARTATE AMINO TRANSFERASE 19 Units/L (15-37); BLOOD UREA NITROGEN 5 mg/dL (7-18); CALCIUM 8.4 mg/dL (8.5-10.1); CARBON DIOXIDE 22.2 mmol/L (21-32); CHLORIDE 112 mmol/L (98-107); COR CA(FOR HYPOALB) 9.4 mg/dL (8.5-10.1); CREATININE 0.88 mg/dL (0.70-1.30); SODIUM 144 mmol/L (136-145); TOTAL PROTEIN 5.8 g/dL (6.4-8.2); eGFR NON BLACK RACES > 60 (>60)
[2021-11-06] MEDS: K-DUR TAB 20 MEQ PO PRN (06:33)
--- NOTE | 2021-11-06 06:39 | RAD ---
HISTORYAbdominal painSTUDYKUBCOMPARISONCT abdomen pelvis 11/03/2021FINDINGSAbdominal gas pattern is nonspecific and nonobstructive. No abnormal masses or abnormal calcifications are identified. Regional skeleton is osteopenic but intact.IMPRESSIONNonspecific nonobstructive bowel gas patternElectronically signed by: ILA GONZALEZ (Nov 06, 2021 06:38:58)
[2021-11-06] MEDS: PLAVIX PO SCH (08:20)
[2021-11-06] MEDS: COREG TAB 6.25 MG PO SCH (08:21)
[2021-11-06] MEDS: VSL#3 PO SCH (08:21)
[2021-11-06] MEDS: PROTONIX TAB 40 MG PO SCH (08:21)
[2021-11-06] MEDS: ISOSORBIDE MONONITRATE ER 24-HR PO SCH (08:22)
[2021-11-06] MEDS: CRESTOR TAB 10 MG PO SCH (08:22)
[2021-11-06] MEDS: CIPRO IV 400 MG PREMIX* 400 MG/200 ML IV.SOLN. IV SCH (08:23)
== END 2021-11-06 11:35 | disposition home or self-care (01) | DRG 373 ==
LOC: ER 19:03 → MED/SURG 23:44
PROVIDERS: ADMIT Family Medicine; ATTEND Family Medicine
DX: A04.5 Campylobacter enteritis; I25.10 Atherosclerotic heart disease of native coronary artery without angina pectoris; R10.84 Generalized abdominal pain; A02.0 Salmonella enteritis; A07.2 Cryptosporidiosis; R76.8 Other specified abnormal immunological findings in serum; E78.2 Mixed hyperlipidemia; E86.0 Dehydration; B96.81 Helicobacter pylori [H. pylori] as the cause of diseases classified elsewhere; Z20.822 Contact with and (suspected) exposure to COVID-19; K21.9 Gastro-esophageal reflux disease without esophagitis; I10 Essential (primary) hypertension

== ENCOUNTER 2023-06-04 11:45 | Inpatient (IN) ==
--- NOTE | 2023-06-04 11:58 | DR.DIZZY ---
HPI Time seen Time Seen by Provider: 06/04/23 11:57 Complaint Chief Complaint Doctor Comments: According to the the patient got a little lethargic yesterday and just went to bed this morning she stated that he was not able to get out of the bed and he was saying things that seem to be out of the ordinary. He cannot follow directions properly. He had she had to get some of the neighbors to help him get out of bed and into the car to come over here to the office. The patient has a history of a CVA and has some right-sided weakness this patient denied chest pain or shortness of breath he has had a stent placed in the past. Context Stroke Symptoms: Weakness of limb PMH PMH Past Medical History: Anemia, Arthritis, Coronary Artery Disease, CVA, Dyslipidemia, GERD, Hypertension, NV and PUD Past Surgical History: Yes Surgical History: Angioplasty/Stents, Bowel Resection and Ortho Surgery Family History Family Medical History: Cancer and Hypertension Social History Do you use any recreational Drugs:: No ROS Review of Systems Constitutional: Other (change in mental status,tia,cva) Eyes: No Symptoms Reported ENTM: No Symptoms Reported Respiratoy: No Symptoms Reported Cardiovascular: No Symptoms Reported Gastrointestinal/Abdominal: No Symptoms Reported Genitourinary: No Symptoms Reported Neurological: Weakness, Dizziness and Other (unstable gait) Musculoskeletal: No Symptoms Reported Integumentary: No Symptoms Reported Hematologic/Lymphatic: No Symptoms Reported Endocrine: No Symptoms Reported Psychiatric: Other (confabulations) PE Vital Signs Vitals: Vital Signs Temperature 99.0 F Temperature 100.6 F Pulse Rate 70 Pulse Rate 71 Pulse Rate 72 Pulse Rate 73 Pulse Rate 67 Pulse Rate 74 Pulse Rate 69 Pulse Rate 72 Pulse Rate 77 Pulse Rate 76 Pulse Rate 73 Pulse Rate 73 Pulse Rate 72 Pulse Rate 73 Pulse Rate 78 Pulse Rate 88 Respiratory Rate 30 Respiratory Rate 24 Respiratory Rate 28 Respiratory Rate 31 Respiratory Rate 44 Respiratory Rate 45 Respiratory Rate 44 Respiratory Rate 27 Respiratory Rate 28 Respiratory Rate 26 Respiratory Rate 25 Respiratory Rate 26 Respiratory Rate 28 Respiratory Rate 31 Respiratory Rate 27 Respiratory Rate 20 Respiratory Rate 24 Respiratory Rate 22 Blood Pressure 130/62 Blood Pressure 120/60 Blood Pressure 133/64 Blood Pressure 122/63 Blood Pressure 135/61 Blood Pressure 130/60 Blood Pressure 124/58 Blood Pressure 131/61 Blood Pressure 85/61 Blood Pressure 114/60 Blood Pressure 124/62 Blood Pressure 112/65 Blood Pressure 145/65 O2 Sat by Pulse Oximetry 100 O2 Sat by Pulse Oximetry 94 O2 Sat by Pulse Oximetry 100 O2 Sat by Pulse Oximetry 100 O2 Sat by Pulse Oximetry 100 O2 Sat by Pulse Oximetry 98 O2 Sat by Pulse Oximetry 95 O2 Sat by Pulse Oximetry 92 O2 Sat by Pulse Oximetry 91 O2 Sat by Pulse Oximetry 91 O2 Sat by Pulse Oximetry 90 O2 Sat by Pulse Oximetry 91 O2 Sat by Pulse Oximetry 92 O2 Sat by Pulse Oximetry 98 O2 Sat by Pulse Oximetry 93 O2 Sat by Pulse Oximetry 94 General Limitations: Physical Limitation (unable to ambulate) General Appearance: Anxious Head Head Exam: Normal Inspection, Atraumatic and Normocephalic Eyes Eye exam: Normal Appearance and PERRL Pupils: Regular, Round: Bilateral ENT ENT Exam: Normal Exam, Normal Oropharynx and Normal External Ear Exam Neck Neck Exam: Normal Inspection, Full ROM and Trachea Midline Chest Chest Inspection: Normal Inspection and Symmetric Chest Wall Rise Respiratory Respiratory Exam: Normal Lung Sounds Bilat Respiratory Exam: Bilateral: Clear to Auscultation Cardiovascular Cardiovascular Exam: Regular Rate and Normal Rhythm Abdominal Exam Abdominal Exam: Normal Inspection Rectal Rectal Exam: Deferred Extremeties Extremities Exam: Normal Inspection and Other Back Back Exam: Normal Inspection Neurologic Neurological Exam: Alert and Other (confabulations) Patient Oriented To: Person Speech: Fluid Speech Cranial Nerve Exam: EOM Function (II, III, IV, ): Normal Motor Strength - LUE: 4/5 Motor Strength - RUE: 3/5 Motor Strength - LLE: 4/5 Motor Strength - RLE: 3/5 Psychiatric Psychiatric Exam: Agitated and Anxious Skin Skin Exam: Warm, Dry and Intact MDM Differential Diagnosis Differential Diagnosis: CVA, Electrolyte disorder, Pulmonary embolus and Other (uti) COURSE Treatment Treatment: Patient remained relatively stable during ER evaluation. We did do a CT scan of his brain initially and it showed that was maybe an age-indeterminate left thalamus basal ganglia infarct and they wanted to consider MRI for further evaluation. We did do an MRI of his brain that showed no acute infarct in the left thalamic and basal ganglia area they said these were chronic findings. We did also look a D-dimer that show 2.31 we did a CTA of his chest that was negative for PE just showed may be some little bit of pulmonary edema. We did a troponin that was 10.9 did a COVID respiratory port channel that was negative he did have an elevated WBC of 16.3 and he had a florid urinary tract infection. These findings were discussed with the patient is spouse and we told her we will going to admit her him to the ER for further evaluation of his neurologic change for his leukocytosis, for his generalized weakness, for UTI and altered mental status with hypoxia. This patient was placed on 2 L oxygen and his O2 sat came up from 90 to 98%. Contact was made with Dr. Mina at [phone] and this patient was discussed and he stated that he was set the patient for admission. ROR Labs Reviewed Laboratory Results Reviewed?: Yes 06/04/23 11:46 06/04/23 11:46 Laboratory: WBC 16.7 X10^3/uL (3.6-10.0) H 06/04/23 11:46 RBC 4.76 X10^6/uL (4.7-6.0) 06/04/23 11:46 Hgb 13.0 g/dL (13.5-18.0) L 06/04/23 11:46 Hct 40.2 % (42.0-54.0) L 06/04/23 11:46 MCV 84.5 fL (80.0-100.0) 06/04/23 11:46 MCH 27.2 pg (27.0-34.0) 06/04/23 11:46 MCHC 32.2 g/dL (33.0-35.0) L 06/04/23 11:46 RDW 14.6 % (11.6-16.5) 06/04/23 11:46 Plt Count 170 X10^3/uL (150.0-450.0) 06/04/23 11:46 MPV 8.8 fL (7.4-11.0) 06/04/23 11:46 Neut % (Auto) 87.6 % (42.0-75.0) H 06/04/23 11:46 Lymph % (Auto) 8.0 % (21.0-51.0) L 06/04/23 11:46 [place] % (Auto) 3.9 % (0.0-13.0) 06/04/23 11:46 Eos % (Auto) 0.1 % (0.9-2.9) L 06/04/23 11:46 Baso % (Auto) 0.4 % (0.2-1.0) 06/04/23 11:46 Neut # (Auto) 14.6 x10^3/uL (2.2-4.8) H 06/04/23 11:46 Lymph # (Auto) 1.3 X10^3/uL (1.3-2.9) 06/04/23 11:46 [place] # (Auto) 0.6 x10^3/uL (0.3-0.8) 06/04/23 11:46 Eos # (Auto) 0.0 x10^3/uL (0.0-0.2) 06/04/23 11:46 Baso # (Auto) 0.1 X10^3/uL (0.0-0.1) 06/04/23 11:46 Absolute Nucleated RBC 0.1 /100WBC 06/04/23 11:46 PT 13.4 SECONDS (11.8-14.3) 06/04/23 11:46 INR Target Range - 06/04/23 11:46 INR 1.04 (0.8-1.3) 06/04/23 11:46 APTT 29.8 SECONDS (22.9-36.5) 06/04/23 11:46 PTT Comment - 06/04/23 11:46 D-Dimer 2.31 ug/ml (0.0-0.57) H 06/04/23 11:46 Sample Site Rra 06/04/23 16:04 ABG pH 7.450 (7.35-7.45) 06/04/23 16:04 ABG pCO2 34.0 mmHg (35.0-45.0) L 06/04/23 16:04 ABG pO2 53.0 mmHg (80.0-100.0) L 06/04/23 16:04 ABG HCO3 23.6 mmol/L (22-26) 06/04/23 16:04 ABG O2 Saturation 89.0 % (90-100) L 06/04/23 16:04 ABG Base Excess 0.1 mmol/L (-2.0-2.0) 06/04/23 16:04 [place] Test Pos 06/04/23 16:04 A-a Gradient 54.0 mmHg 06/04/23 16:04 FiO2 21.0 06/04/23 16:04 Blood Gas Comments Pt jericho well eb/ms 06/04/23 16:04 Sodium 136 mmol/L (136-145) 06/04/23 11:46 Corrected Sodium TNP 06/04/23 11:46 Potassium 3.9 mmol/L (3.5-5.1) 06/04/23 11:46 Chloride 103 mmol/L (98-107) 06/04/23 11:46 Carbon Dioxide 23.6 mmol/L (21-32) 06/04/23 11:46 BUN 12 mg/dL (7-18) 06/04/23 11:46 Creatinine 1.19 mg/dL (0.70-1.30) 06/04/23 11:46 Est GFR (MDRD) Af Amer > 60 (>60) 06/04/23 11:46 Est GFR (MDRD) Non-Af > 60 (>60) 06/04/23 11:46 Glucose 108 mg/dL (65-99) H 06/04/23 11:46 Lactic Acid 1.6 mmol/L (0.4-2.0) 06/04/23 12:10 Calcium 8.9 mg/dL (8.5-10.1) 06/04/23 11:46 Corrected Calcium TNP 06/04/23 11:46 Total Bilirubin 0.70 mg/dL (0.2-1.0) 06/04/23 11:46 AST 18 Units/L (15-37) 06/04/23 11:46 ALT 25 Units/L (12-78) 06/04/23 11:46 Alkaline Phosphatase 116 Units/L (46-116) 06/04/23 11:46 Troponin I High Sens 10.9 ng/L (4.0-60.0) 06/04/23 11:46 B-Natriuretic Peptide 36.5 pg/mL (0-79) 06/04/23 11:46 Total Protein 7.3 g/dL (6.4-8.2) 06/04/23 11:46 Albumin 3.4 g/dL (3.4-5.0) 06/04/23 11:46 Globulin 3.9 g/dL (2.5-4.5) 06/04/23 11:46 Albumin/Globulin Ratio 0.9 Ratio (1.1-2.1) L 06/04/23 11:46 Specimen Type Clean catch urine 06/04/23 15:24 Urine Color Yellow (YELLOW) 06/04/23 15:24 Urine Appearance Hazy (CLEAR) 06/04/23 15:24 Urine pH 5.0 (5.0 - 8.0) 06/04/23 15:24 Ur Specific [place] 1.015 (1.000-1.030) 06/04/23 15:24 Urine Protein 2+ (NEGATIVE) 06/04/23 15:24 Urine Glucose (UA) Negative (NEGATIVE) 06/04/23 15:24 Urine Ketones Negative (NEGATIVE) 06/04/23 15:24 Urine Blood 4+ (NEGATIVE) 06/04/23 15:24 Urine Nitrite Positive (NEGATIVE) 06/04/23 15:24 Urine Bilirubin Negative (NEGATIVE) 06/04/23 15:24 Urine Urobilinogen Normal (NORMAL) 06/04/23 15:24 Ur Leukocyte Esterase 3+ (NEGATIVE) 06/04/23 15:24 Urine RBC 3-5 /HPF (0-3) A 06/04/23 15:24 Urine WBC Tntc /HPF (0-5) A 06/04/23 15:24 Ur Squamous Epith Cells Rare /HPF (NEGATIVE) 06/04/23 15:24 Urine Bacteria 3+ /HPF (NEGATIVE) 06/04/23 15:24 Ur Culture Indicated? Yes/culture set up 06/04/23 15:24 Urine Opiates Screen Negative (NEG=<300) 06/04/23 15:24 Urine Methadone Screen Negative (NEG=<300) 06/04/23 15:24 Ur Barbiturates Screen Negative (NEG=<200) 06/04/23 15:24 Ur Phencyclidine Scrn Negative (NEG=<25) 06/04/23 15:24 Ur Amphetamines Screen Negative (NEG=<1000) 06/04/23 15:24 U Benzodiazepines Scrn Negative (NEG=<200) 06/04/23 15:24 Urine Cocaine Screen Negative (NEG=<300) 06/04/23 15:24 U Marijuana (THC) Screen Negative (NEG=<50) 06/04/23 15:24 SARS-CoV-2 (PCR) Negative (NEGATIVE) 06/04/23 12:11 Influenza Type A (PCR) Negative (NEGATIVE) 06/04/23 12:11 Influenza Type B (PCR) Negative (NEGATIVE) 06/04/23 12:11 RSV (PCR) Negative (NEGATIVE) 06/04/23 12:11 Opioid Opioid Risk Tool Age (Ron box if 16-45): No History of Preadolescent Sexual Abuse: No Total: 0 Total Score Risk Category: Low Risk Copyright: [facility] predicting aberrant behaviors Discharge Plan Diagnosis Discharge Problem: Leucocytosis, Lethargic, UTI (urinary tract infection), Altered mental status, Hypoxia Discharge Plan Patient Disposition: ADMITTED INPATIENT Condition: Stable Prescriptions: No Action carvedilol 6.25 mg tablet 6.25 mg PO BID Patient Comments: TAKE ONE TABLET BY MOUTH TWO TIMES A DAY WITH FOOD cyclobenzaprine 10 mg Tablet 10 mg PO DAILY PRN (Reason: Muscle Pain) clopidogrel 75 mg Tablet 75 mg PO QDAY isosorbide mononitrate 60 mg Tablet Extended Release 24 Hr 60 mg PO DAILY tamsulosin 0.4 mg Capsule 0.4 mg PO HS folic acid 1 mg Tablet 1 mg PO DAILY rosuvastatin 20 mg Tablet 20 mg PO DAILY gabapentin 300 mg Tablet See Rx Instructions .ROUTE .COMPLEX Rx Instructions: Gabapentin 600mg daily in morning and at noon and take 900mg daily at bedtime cholecalciferol (vitamin D3) 50 mcg (2,000 unit) Tablet 50 mcg PO QDAY acetaminophen 325 mg Tablet 325 mg PO Q6H PRN (Reason: Mild Pain) cyanocobalamin (vitamin B-12) 1,000 mcg Tablet 1,000 mcg PO DAILY aspirin 81 mg Tablet,Delayed Release (Dr/Ec) 81 mg PO DAILY tramadol 50 mg Tablet 50 mg PO Q6H PRN (Reason: Severe Pain) omeprazole 20 mg Capsule,Delayed Release(Dr/Ec) 20 mg PO DAILY losartan 100 mg Tablet 50 mg PO DAILY finasteride 5 mg Tablet 5 mg PO DAILY Health Concerns: Post Hospitalization: new medications and changes needed to prevent readmission or further decline. Pt educated and given instructions on all concerns. Plan of Treatment: Continue with present treatment and follow up plan. Pt is to keep follow up a ppointment as instructed and take medications as ordered. Orders to Discharge Patient Discharge Orders: Transfer (Routine); Ordered 06/04/23 Ordered By: Yovani Goyal Follow ups/Referrals Follow ups/Referrals: NFD,None [Primary Care Provider] - 3 days
[2023-06-04 12:07] LABS: BASOPHILS # (AUTO) 0.1 X10^3/uL (0.0-0.1); BASOPHILS % (AUTO) 0.4 % (0.2-1.0); EOSINOPHILS % (AUTO) 0.1 % (0.9-2.9); HEMATOCRIT 40.2 % (42.0-54.0); LYMPHOCYTES # (AUTO) 1.3 X10^3/uL (1.3-2.9); MEAN CORPUSCULAR HEMOGLOBIN 27.2 pg (27.0-34.0); MEAN CORPUSCULAR HGB CONC 32.2 g/dL (33.0-35.0); MEAN CORPUSCULAR VOLUME 84.5 fL (80.0-100.0); MEAN PLATELET VOLUME 8.8 fL (7.4-11.0); MONOCYTES # (AUTO) 0.6 x10^3/uL (0.3-0.8); MONOCYTES % (AUTO) 3.9 % (0.0-13.0); NEUTROPHILS # (AUTO) 14.6 x10^3/uL (2.2-4.8); NEUTROPHILS % (AUTO) 87.6 % (42.0-75.0); PLATELET COUNT 170 X10^3/uL (150.0-450.0); RED BLOOD COUNT 4.76 X10^6/uL (4.7-6.0); RED CELL DISTRIBUTION WIDTH 14.6 % (11.6-16.5); WHITE BLOOD COUNT 16.7 X10^3/uL (3.6-10.0)
--- NOTE | 2023-06-04 12:11 | EKG ---
Test Reason : r/o cva Blood Pressure : */* mmHG Vent. Rate : 90 BPM Atrial Rate : 90 BPM P-R Int : 174 ms QRS Dur : 114 ms QT Int : 378 ms P-R-T Axes : 80 -35 88 degrees QTc Int : 462 ms Normal sinus rhythm Left axis deviation Minimal voltage criteria for LVH, may be normal variant ( Mamadou product ) Anteroseptal infarct , age undetermined T wave abnormality, consider lateral ischemia Nonspecific intraventricular conduction delay Abnormal ECG No previous ECGs available Confirmed by Lonny Willis ([id number]) on 06/05/2023 11:06:09 AM Referred By: Confirmed By: Lonny Willis
[2023-06-04 12:12] LABS: INR 1.04 (0.8-1.3)
[2023-06-04 12:20] LABS: ALANINE AMINOTRANSFERASE 25 Units/L (12-78); ALBUMIN 3.4 g/dL (3.4-5.0); ALKALINE PHOSPHATASE 116 Units/L (46-116); ASPARTATE AMINO TRANSFERASE 18 Units/L (15-37); BLOOD UREA NITROGEN 12 mg/dL (7-18); CALCIUM 8.9 mg/dL (8.5-10.1); CARBON DIOXIDE 23.6 mmol/L (21-32); CHLORIDE 103 mmol/L (98-107); CREATININE 1.19 mg/dL (0.70-1.30); GLUCOSE 108 mg/dL (65-99); POTASSIUM 3.9 mmol/L (3.5-5.1); SODIUM 136 mmol/L (136-145); TOTAL PROTEIN 7.3 g/dL (6.4-8.2); eGFR NON BLACK RACES > 60 (>60)
[2023-06-04] MEDS: TYLENOL 325 MG TAB PO ONE ×2 (12:21→12:23)
--- NOTE | 2023-06-04 12:22 | CT ---
EXAM: BRAIN W/O CON HISTORY: AMS, R/O CVA; COMPARISON: None. TECHNIQUE: Multiple axial images of the head were performed from the skullbase to the vertex using standard depa rtmental protocol. Sagittal and coronal reformatted images were performed. Dose reduction techniques including Automated Exposure Control (AEC) and adjustment of mA and kV were utilized. FINDINGS: Limitations: Patient head is mildly tilted in the scanner. Ventricles and cisterns: Asymmetrically mildly larger left lateral ventricle is often a normal anatom ic variant. Brain parenchyma: No parenchymal mass or hematoma. Age-indeterminate left thalamus and left basal ga nglia lacunar infarcts. Mild low-attenuation change in the subcortical and deep supratentorial white matter. Extra-axial: No extra-axial collection. Orbits: The globes are intact. Sinuses: No air-fluid levels in the paranasal sinuses. No paranasal sinus wall thickening or scleros is. The mastoid air cells are clear. Bones: The calvarium is intact. IMPRESSION: Age-indeterminate left thalamus/basal ganglia lacunar infarcts. Consider MRI of the brain for furthe r evaluation as clinically warranted. THIS IS AN ELECTRONICALLY VERIFIED FINAL REPORT 06/04/2023 12:18 PM - Electronically signed by Jose F Figueroa MD
[2023-06-04] MEDS: OMNIPAQUE 350 mg/mL 100 mL BTL 100 ML ONE (13:08)
--- NOTE | 2023-06-04 14:13 | CT ---
EXAM:CTA, CHESTHISTORY:elevated d-dimer;COMPARISON:Chest radiograph 06/04/2023TECHNIQUE:Multiple CT axial images of the chest were obtained with IV contrast. Coronal and sagittal images were reconstructed. 3D reconstructions using axial MIPS imaging was performed and reviewed. Dose reduction techniques included Automated Exposure control (AEC) and adjustment of mA and kV. Stenoses are measured using NASCET criteria.FINDINGS:Pulmonary arteries are identified to lobar branches at all locations and segmental branches at some locations. There is respiratory motion artifact. No pulmonary emboli are present.The heart is normal in size. Atherosclerotic calcification is present in the coronary arteries. The pulmonary artery and aorta have a normal caliber. No mediastinal mass or significant lymphadenopathy.The thyroid has a normal size and configuration. No axillary mass or significant axillary lymphadenopathy is identified.No significant pleural effusion. There is ground-glass opacity in the lungs, mostly in dependent distribution. This was not present on the CT abdomen lung bases of 11/03/2021. This could be pulmonary edema.Degenerative changes are present in the spine.Limited images of the upper abdomen show no significant abnormality.IMPRESSION:1. No pulmonary emboli2. Subtle findings suggesting possible pulmonary edemaTHIS IS AN ELECTRONICALLY VERIFIED FINAL REPORT06/04/2023 2:10 PM - Electronically signed by Jordan Diamond MD
--- NOTE | 2023-06-04 14:53 | MRI ---
EXAM: BRAIN W/O CON HISTORY: R/O STROKE left thalamus/basal ganglia infarct; COMPARISON: CT head from 06/04/2023. TECHNIQUE: Multiplanar multi-sequence MRI of the brain was obtained utilizing standard departmental protocol. Sa gittal and axial T1 weighted images were obtained. Axial T2 and flair weighted images were performed as well. Axial diffusion weighted and ADC trace mapping was performed. FINDINGS: Mild to moderate motion artifact on multiple pulse sequences. Diffusion imaging: Normal, no acute infarct. Susceptibility weighted imaging: No abnormal susceptibility artifact. Brain volume: Appropriate for age. Ventricles and basal cisterns: Normal for age. Extra-axial spaces: No extra-axial collection. Cerebral parenchyma: No mass, hematoma, or mass effect. Chronic left thalamus and basal ganglia lacu aubrie infarcts. Mild amount of T2 and FLAIR hyperintensities in the subcortical and deep supratentoria l white matter. Pituitary and other sagittal midline structures: Normal. Visualized orbits: Normal. Paranasal sinuses and mastoid air cells: Mild fluid in the right mastoid air cells. Bones: Intact. Other: None. IMPRESSION: No abnormal restricted diffusion to suggest acute infarct. The left thalamus and left basal ganglia lacunar infarcts are chronic. Mild fluid in the right mastoid air cells. Please correlate clinically for mastoiditis. THIS IS AN ELECTRONICALLY VERIFIED FINAL REPORT 06/04/2023 2:50 PM - Electronically signed by Jose F Figueroa MD
--- NOTE | 2023-06-04 14:56 | RAD ---
EXAM:CHEST, 1 VIEWHISTORY:ams, fever;COMPARISON:November 03, 2021TECHNIQUE:Single frontal view of the chestFINDINGS:The heart size is normal for technique. There is no mediastinal widening observed. The pleural spaces are clear. A vascular stent is demonstrated along the left heart border. Mild interstitial haziness of the dependent lung bases with no consolidating infiltrates. The pleural spaces are clear. No radiographic evidence of free air or pneumothorax. No acute osseous abnormalities of the chest.IMPRESSION:Mild, nonspecific interstitial haziness without consolidation or pleural fluid collections.THIS IS AN ELECTRONICALLY VERIFIED FINAL REPORT06/04/2023 2:53 PM - Electronically signed by Warren Gutierrez MD
[2023-06-04 15:31] LABS: BILIRUBIN,URINE NEGATIVE (NEGATIVE); BLOOD/HEMOGLOBIN,URINE 4+ (NEGATIVE); GLUCOSE, URINE NEGATIVE (NEGATIVE); KETONES,URINE NEGATIVE (NEGATIVE); LEUKOCYTE ESTERASE ,URINE 3+ (NEGATIVE); NITRITES,URINE POSITIVE (NEGATIVE); PROTEIN,URINE 2+ (NEGATIVE); UROBILINOGEN,URINE NORMAL (NORMAL)
[2023-06-04 15:42] LABS: APPEARANCE,URINE HAZY (CLEAR); COLOR,URINE YELLOW (YELLOW)
[2023-06-04 15:43] LABS: BACTERIA,URINE 3+ /HPF (NEGATIVE); SQUAMOUS EPITHELIAL CELL,UR RARE /HPF (NEGATIVE)
[2023-06-04 16:09] LABS: ABG ALLEN TEST POS; ABG BASE EXCESS 0.1 mmol/L (-2.0-2.0); ABG HCO3 23.6 mmol/L (22-26)
[2023-06-04] MEDS ORDERED: ROCEPHIN VIAL 1 GRAM ONE (16:32)
[2023-06-04] MEDS: ROCEPHIN VIAL 1 GRAM IV ONE (16:35)
[2023-06-04] MEDS ORDERED: LASIX IVP ONE (16:48)
[2023-06-04] MEDS: LASIX IVP ONE (16:53)
[2023-06-04] MEDS: ROCEPHIN VIAL 1 GRAM 1 G in NS 100 ML IV 100 ML IV SCH (18:00)
[2023-06-04 18:34] VITALS: RESP 20
[2023-06-04 18:45] VITALS: BMI 25.5
[2023-06-04] MEDS: COREG TAB 6.25 MG PO SCH (20:24)
[2023-06-04] MEDS: FLOMAX PO SCH (20:24)
[2023-06-04] MEDS: CRESTOR TAB 10 MG PO SCH (20:24)
[2023-06-05 06:27] LABS: BASOPHILS # (AUTO) 0.1 X10^3/uL (0.0-0.1); BASOPHILS % (AUTO) 0.5 % (0.2-1.0); EOSINOPHILS % (AUTO) 0.1 % (0.9-2.9); HEMATOCRIT 38.2 % (42.0-54.0); HEMOGLOBIN 12.4 g/dL (13.5-18.0); LYMPHOCYTES % (AUTO) 12.1 % (21.0-51.0); MEAN CORPUSCULAR HGB CONC 32.4 g/dL (33.0-35.0); MEAN CORPUSCULAR VOLUME 83.4 fL (80.0-100.0); MEAN PLATELET VOLUME 9.1 fL (7.4-11.0); MONOCYTES # (AUTO) 1.2 x10^3/uL (0.3-0.8); MONOCYTES % (AUTO) 7.5 % (0.0-13.0); NEUTROPHILS # (AUTO) 13.2 x10^3/uL (2.2-4.8); NEUTROPHILS % (AUTO) 79.8 % (42.0-75.0); PLATELET COUNT 139 X10^3/uL (150.0-450.0); RED BLOOD COUNT 4.58 X10^6/uL (4.7-6.0); RED CELL DISTRIBUTION WIDTH 14.3 % (11.6-16.5); WHITE BLOOD COUNT 16.5 X10^3/uL (3.6-10.0)
[2023-06-05 06:47] LABS: ALANINE AMINOTRANSFERASE 21 Units/L (12-78); ALKALINE PHOSPHATASE 101 Units/L (46-116); ASPARTATE AMINO TRANSFERASE 17 Units/L (15-37); BLOOD UREA NITROGEN 15 mg/dL (7-18); CALCIUM 8.6 mg/dL (8.5-10.1); CARBON DIOXIDE 22.5 mmol/L (21-32); CHLORIDE 101 mmol/L (98-107); COR CA(FOR HYPOALB) 9.4 mg/dL (8.5-10.1); COR NA(FOR HYPERGLY) 136 mmol/L (136-145); CREATININE 1.02 mg/dL (0.70-1.30); GLUCOSE 113 mg/dL (65-99); POTASSIUM 3.4 mmol/L (3.5-5.1); SODIUM 136 mmol/L (136-145); TOTAL PROTEIN 6.8 g/dL (6.4-8.2); eGFR NON BLACK RACES > 60 (>60)
[2023-06-05] MEDS ORDERED: CONSULT PHARMACY - POTASSIUM & MAGNESIUM XX SCH (07:00)
[2023-06-05 07:51] VITALS: BP 124/65; PULSE 62; TEMP 98.3; O2SAT 95
[2023-06-05] MEDS ORDERED: PATIENT'S HOME MEDICATION (Losartan 100 mg Tablet) PO SCH (09:00)
[2023-06-05] MEDS ORDERED: ROSUVASTATIN 20 MG PO SCH (09:00)
[2023-06-05] MEDS ORDERED: PATIENT'S HOME MEDICATION (Cholecalciferol (Vitamin D3) 50 mcg (2,000 unit) Tablet) PO SCH (09:00)
[2023-06-05] MEDS: MAG-OX TAB PO SCH (09:18)
[2023-06-05] MEDS: LASIX IVP SCH (09:18)
[2023-06-05] MEDS: ASPIRIN EC 81 MG PO SCH (09:19)
[2023-06-05] MEDS: K-DUR TAB 20 MEQ PO SCH (09:20)
[2023-06-05] MEDS: ISOSORBIDE MONONITRATE ER 24-HR PO SCH (09:20)
[2023-06-05] MEDS: VITAMIN D3 25 mcg (1,000 UNITS) PO SCH (09:20)
[2023-06-05] MEDS: FOLIC ACID TAB 1 MG PO SCH (09:21)
[2023-06-05] MEDS: PLAVIX PO SCH (09:22)
[2023-06-05] MEDS: COZAAR PO SCH (09:22)
--- NOTE | 2023-06-15 13:01 | DR.CARTERS ---
Short Stay Summary - Admission Date Date of Admission: 06/04/23 - Discharge Date Discharge Date: 06/05/23 - Admission Diagnoses (1) Leucocytosis Status: Acute (2) UTI (urinary tract infection) Status: Acute (3) Altered mental status Status: Acute (4) Lethargic Status: Acute - Discharge Medications Discharge Medications: Home Medication List acetaminophen 325 mg tablet 325 mg PO Q6H PRN Mild Pain 06/04/23 [History] aspirin 81 mg tablet,delayed release 81 mg PO DAILY 06/04/23 [History] cyanocobalamin (vitamin B-12) 1,000 mcg tablet 1,000 mcg PO DAILY 06/04/23 [History] finasteride 5 mg tablet 5 mg PO DAILY 06/04/23 [History] losartan 100 mg tablet 50 mg PO DAILY 06/04/23 [History] omeprazole 20 mg capsule,delayed release 20 mg PO DAILY 06/04/23 [History] tramadol 50 mg tablet 50 mg PO Q6H PRN Severe Pain 06/04/23 [History] ciprofloxacin HCl 750 mg tablet 750 mg PO BID #28 tabs 06/05/23 [Rx] Prescriptions: ciprofloxacin HCl Dennis Mina [facility] - [facility] Course Hospital Course: IS A 72 YEAR OLD WHITE MALE WITH HX OF ANEMIA, ARTHRITIS, CORONARY ARTERY DISEASE, CVA WITH RIGHT SIDED WEAKNESS, DYSLIPIDEMIA, GERD, HYPERTENSION, LA, PUD, ANGIOPLASTY/STENTS, BOWEL RESECTION AND ORTHO SURGERY. HE PRESENTED TO THE ER WITH HIS SPOUSE REPORTING THAT PATIENT HAS BEEN LETHARGIC AND CONFUSED. SHE REPORTS THAT HE HAS BEEN SAYING THINGS THAT WERE OUT OF THE ORDINARY AND WAS NOT ABLE TO FOLLOW DIRECTIONS PROPERLY. SHE REPORTS THAT HE HAS BEEN WEAK AND UNABLE TO GET OUT OF BED WITHOUT ASSISTANCE. ON ARRIVAL TO THE ER, PATIENT DENIED CHEST PAIN OR SHORTNESS OF BREATH. HE WAS UNABLE TO AMBULATE AND WAS DISORIENTED. ON ARRIVAL, HIS VITALS WER3E: 100.6-88-22-94%-145/65. LABS WERE OBTAINED. WBC 16.7, RBC 4.76, HGB 13.0, HCT 40.2, PLT COUNT 170, D-DIMER 2.31, SODIUM 136, POTASSIUM 3.9, CHLORIDE 103, BUN 12, CREAITNINE 1.19, GLUCOSE 108, CALCIUM 8.9, TOTAL BILI 0.70, AST 18, ALT 25, ALK PHOS 116, BNP 36.5, TOTAL PROTEIN 7.3, ALBUMIN 3.4. URINALYSIS REVEALED: WBC TNTC, RBC 3-5, BACTERIA 3+, LEUKOCYTES 3+, NITRITE POSITIVE. UDS NEGATIVE. COVID, INFLUENZA, RSV NEGATIVE. BLOOD AND URINE CULTURES WERE SET UP. BRAIN CT WAS OBTAINED AND REVEALED: AGE- INDETERMINATE LEFT THALAMUS/BASAL GANGLIA LACUNAR INFARCTS. BRAIN MRI REVEALED: NO ABNORMAL RESTRICTED DIFFUSION TO SUGGEST ACUTE INFARCT. 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 MILD FLUID IN THE RIGHT MASTOID AIR CELLS. PLEASE CORRELATE CLINICALLY FOR MASTOIDITIS. CHEST XRAY REVEALED: Mild, nonspecific interstitial haziness without consolidation or pleural fluid collections. EKG REVEALED NORMAL SINUS RHYTHM WITH HR 90 BPM. CHEST CTA WAS OBTAINED AND REVEALED: 1. NO PULMONARY EMBOLI 2. SUBTLE FINDINGS SUGGESTING POSSIBLE PULMONARY EDEMA. IN THE ER, HE WAS GIVEN TYLENOL 650MG PO X 1, ROCEPHIN 1G IV X 1, LASIX 40MG IV X 1. HE WAS ADMITTED TO THE HOSPITAL INPATIENT STATUS FOR FURTHER EVALUATION AND TREATMENT OF LEUKOCYTOSIS, UTI, AMS, LETHARGY. ON ADMISSION, HE WAS STARTED ON ROCEPHIN 1G IV DAILY, LASIX 20MG IV BID. HIS HOME MEDICATIONS OF VITAMIN D3, LOSARTAN, ROSUVASTATIN, ECOTRIN, COREG, PLAVIX, FOLIC ACID, ISOSORBID, FLOMAX WERE RESUMED. OTHERWISE, WE PLANNED TO FOLLOW-UP WITH AM LABS AND CONTINUE TO MONITOR. ON MORNING ROUNDS, PATIENT WAS ALERT AND ORIENTED, SITTING UP IN BED. HE DENIED CURRENT COMPLAINS AND REPORTS HAVING AN UNEVENTFUL NIGHT. HE WAS REQUESTING DISCHARGE HOME. LABS ON MORNING ROUNDS WERE: 98.3-62-20-95%-124/65. LABS WERE REPEATED. WBC REMAINED ELEVATED AT 16.5. HIS POTASSIUM AND MAGNESIUM WERE LOW AT 3.4 AND 1.6. BOTH WERE REPLACED PER PROTOCOL. WE PLANNED FOR DISCHARGE. INSTRUCTIONS FOR MEDICATIONS AND FOLLOW-UP WERE DISCUSSED WITH PATIENT AND HIS SPOUSE. THEY VERBALIZED UNDERSTANDING. HE WAS GIVEN A NEW RX FOR CIPRO 750MG BID X 14 DAYS AND INSTRUCTED TO CONTINUE HIS REGULAR MEDICATIONS WITH NO CHANGES MADE TO DOSAGES. HE WAS INSTRUCTED TO FOLLOW-UP WITH HIS PCP IN 1 WEEK. PATIENT WAS DISCHARGED HOME WITH SPOUSE IN STABLE CONDITION. TIME SPENT ON CLINICAL ASSESSMENT, REVIEWING LABS AND IMAGING, DECISION MAKING, DISCHARGE INSTRUCTIONS, PREPARING DISCHARGE PAPERS, AND DOCUMENTATION GREATER THAN 75 MINUTES. - Discharge Plan Disposition: 01 HOME, SELF-CARE Condition: Stable Prescriptions: ciprofloxacin HCl 750 mg PO BID #28 tabs - Follow up/Referrals Follow up/Referrals: Dennis Mina [STAFF PHYSICIAN] - 1 WEEK - Instructions Instructions: Antibiotic Medicine, Adult, [id number], Weakness, [id number], Urinary Tract Infection, Adult, Ciprofloxacin tablets Additional Instructions: DIET TOLERATED. DRINK PLENTY OF FLUIDS. ACTIVITY TOLERATED. Forms: Excuse From Work or School, Post Hospital Follow Up Care
== END 2023-06-05 10:55 | disposition home or self-care (01) | DRG 690 ==
LOC: ER 11:45 → MED/SURG 17:51
PROVIDERS: ADMIT Internal Medicine; ATTEND Internal Medicine
DX: R79.1 Abnormal coagulation profile; B96.1 Klebsiella pneumoniae [K. pneumoniae] as the cause of diseases classified elsewhere; R40.4 Transient alteration of awareness; R53.1 Weakness; N39.0 Urinary tract infection, site not specified; E83.42 Hypomagnesemia; Z20.822 Contact with and (suspected) exposure to COVID-19; R09.02 Hypoxemia